=== PATIENT | female | born 2000 | race American Indian/Alaskan Native ===

== ENCOUNTER 2022-05-02 20:11 | Emergency (ER) | payer OTHER ==
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
[2022-05-03] MEDS ORDERED: IBUPROFEN 800 MG TAB PO ONE (10:51)
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
[2022-05-03 12:54] VITALS: BP 115/77
== END 2022-05-03 15:32 | disposition home or self-care (01) ==
LOC: ED 20:11
DX: S99.911A Unspecified injury of right ankle, initial encounter (principal); R51.9 Headache, unspecified; V89.2XXA Person injured in unspecified motor-vehicle accident, traffic, initial encounter; Y93.89 Activity, other specified; Y92.89 Other specified places as the place of occurrence of the external cause; Y99.8 Other external cause status
CPT/HCPCS: 70450; 99283; 99284